=== PATIENT | male | born 1935 | race African-American/Black ===

== ENCOUNTER 2021-02-10 18:55 | Inpatient (IN) ==
[2021-02-10 21:11] LABS: Basophils % 0.4 % (0.0-0.8); Eosinophils # 0.1 10*3/uL (0.0-0.87); Eosinophils % 0.6 % (0.00-10.9); Hematocrit 44.1 VOL% (42.0-52.0); Hemoglobin 14.7 GM/DL (14.0-18.0); Immature Granulocytes % 0.4 %; Immature Granulocytes Absolute 0.04 #; Lymphocytes # 1.6 10*3/uL (1.4-4.0); Lymphocytes % 15.4 % (21.2-54.2); Mean Corpuscular HGB Conc 33.3 GM/DL (32-36); Mean Corpuscular Volume 92.5 FL (87-102); Mean Platelet Volume 10.2 FL (9.6-12.0); Monocytes % 6.4 % (1.7-12.7); Neutrophils % 76.8 % (38.7-73.9); Platelet Count 198 T/CUMM (130-400); Red Blood Count 4.77 MC/CUMM (3.8-5.5); Red Cell Distribution Width 12.9 % (9.3-17.3); White Blood Count 10.2 T/CUMM (4-12)
[2021-02-10 21:26] LABS: Albumin 3.7 G/DL (3.4-5.0); Bilirubin,Total 2.6 MG/DL (0.2-1.0); Calcium 9.7 MG/DL (8.5-10.1); Osmolality,Calculated 286.1 MOS/KG (273-304); Potassium 3.2 MMOL/L (3.5-5.1); Total Protein 7.6 G/DL (6.4-8.2)
[2021-02-10 21:31] LABS: Bilirubin,Urine Negative (Negative); Blood, Urine Small mg/dL (Negative); Glucose,Urine (UA) Negative (Negative); Ketones,Urine Negative (Negative); Mucus,Urine Many /LPF (Occasional); Nitrite,Urine Negative (Negative); Protein,Urine 30 MG/DL; RBC,Urine 7 /HPF (0-4); Urine Appearance CLEAR (Clear); Urine Color Yellow (Yellow); Urine Specific Gravity 1.023 (1.001-1.035); WBC,Urine 1 /HPF (0-6)
[2021-02-10] MEDS ORDERED: GLUCAGON 1 MG VIAL IM PRN (23:26)
[2021-02-10] MEDS ORDERED: ONDANSETRON 4 MG/2 ML VIAL IV PRN (23:26)
[2021-02-11] MEDS: SODIUM CHLOR 0.45% KCL 20 MEQ 20 MEQ/1,000 ML BAG IV SCH ×3 (00:27→21:30)
[2021-02-11] MEDS: ENOXAPARIN 40 MG/0.4 ML SYRINGE SUBCUT SCH ×2 (00:28→23:10)
[2021-02-11 06:45] LABS: Albumin 3.3 G/DL (3.4-5.0); Bilirubin,Total 3.1 MG/DL (0.2-1.0); Calcium 9.3 MG/DL (8.5-10.1); Osmolality,Calculated 284.1 MOS/KG (273-304); Potassium 3.4 MMOL/L (3.5-5.1)
[2021-02-11] MEDS: INSULIN REGULAR 100 UNIT/ML SUBCUT SCH ×4 (07:34→21:33)
[2021-02-11] MEDS ORDERED: DOCUSATE SODIUM 100 MG CAPSULE PO PRN (08:03)
[2021-02-11] MEDS ORDERED: SODIUM PHOSPHATE ENEMA 133 ML BOTTLE RECTAL PRN (08:03)
[2021-02-11] MEDS ORDERED: LACTULOSE 20 GM/30 ML UDCUP PO ONE (08:03)
[2021-02-11] MEDS ORDERED: SODIUM PHOSPHATE ENEMA 133 ML BOTTLE RECTAL ONE (08:06)
[2021-02-11] MEDS: POTASSIUM CHLORIDE RIDER 10 MEQ in PREMIX 1 EACH IV PRN ×2 (22:01→23:07)
[2021-02-11] MEDS: TAMSULOSIN 0.4 MG CAPSULE PO SCH (22:25)
[2021-02-12] MEDS: POTASSIUM CHLORIDE RIDER 10 MEQ in PREMIX 1 EACH IV PRN (00:07)
[2021-02-12 06:11] LABS: Basophils % 0.5 % (0.0-0.8); Eosinophils # 0.1 10*3/uL (0.0-0.87); Eosinophils % 1.5 % (0.00-10.9); Hemoglobin 12.9 GM/DL (14.0-18.0); Immature Granulocytes % 0.2 %; Immature Granulocytes Absolute 0.01 #; Lymphocytes # 1.1 10*3/uL (1.4-4.0); Lymphocytes % 17.9 % (21.2-54.2); Mean Corpuscular HGB Conc 33.1 GM/DL (32-36); Mean Corpuscular Volume 93.1 FL (87-102); Mean Platelet Volume 10.7 FL (9.6-12.0); Monocytes % 8.5 % (1.7-12.7); Neutrophils % 71.4 % (38.7-73.9); Platelet Count 193 T/CUMM (130-400); Red Blood Count 4.19 MC/CUMM (3.8-5.5); Red Cell Distribution Width 12.8 % (9.3-17.3); White Blood Count 6.2 T/CUMM (4-12)
[2021-02-12 06:45] LABS: Calcium 8.9 MG/DL (8.5-10.1); Osmolality,Calculated 281.3 MOS/KG (273-304); Potassium 3.8 MMOL/L (3.5-5.1)
[2021-02-12] MEDS: INSULIN REGULAR 100 UNIT/ML SUBCUT SCH ×4 (07:49→20:40)
[2021-02-12] MEDS: SODIUM CHLOR 0.45% KCL 20 MEQ 20 MEQ/1,000 ML BAG IV SCH ×2 (11:03→21:40)
[2021-02-12] MEDS: DEXTROSE 50% 25 GM/50 ML VIAL IV PRN (17:16)
[2021-02-12] MEDS: TAMSULOSIN 0.4 MG CAPSULE PO SCH (20:40)
[2021-02-12] MEDS: ENOXAPARIN 40 MG/0.4 ML SYRINGE SUBCUT SCH (23:30)
[2021-02-13 06:32] LABS: Basophils % 0.6 % (0.0-0.8); Eosinophils # 0.2 10*3/uL (0.0-0.87); Eosinophils % 3.2 % (0.00-10.9); Hematocrit 39.1 VOL% (42.0-52.0); Hemoglobin 13.1 GM/DL (14.0-18.0); Immature Granulocytes % 0.2 %; Immature Granulocytes Absolute 0.01 #; Lymphocytes # 1.2 10*3/uL (1.4-4.0); Lymphocytes % 23.4 % (21.2-54.2); Mean Corpuscular HGB Conc 33.5 GM/DL (32-36); Mean Corpuscular Volume 92.7 FL (87-102); Mean Platelet Volume 10.3 FL (9.6-12.0); Neutrophils % 61.6 % (38.7-73.9); Platelet Count 184 T/CUMM (130-400); Red Blood Count 4.22 MC/CUMM (3.8-5.5); Red Cell Distribution Width 12.6 % (9.3-17.3); White Blood Count 5.3 T/CUMM (4-12)
[2021-02-13 06:56] LABS: Osmolality,Calculated 272.8 MOS/KG (273-304); Potassium 4.1 MMOL/L (3.5-5.1)
[2021-02-13] MEDS ORDERED: MAGNESIUM SULF RIDER 4 GM in PREMIX 1 EACH IV PRN (07:32)
[2021-02-13] MEDS: INSULIN REGULAR 100 UNIT/ML SUBCUT SCH ×4 (07:39→23:16)
[2021-02-13] MEDS: SODIUM CHLOR 0.45% KCL 20 MEQ 20 MEQ/1,000 ML BAG IV SCH (17:30)
[2021-02-13] MEDS: DEXTROSE 50% 25 GM/50 ML VIAL IV PRN (17:31)
[2021-02-13] MEDS: TAMSULOSIN 0.4 MG CAPSULE PO SCH (20:59)
[2021-02-14] MEDS: ENOXAPARIN 40 MG/0.4 ML SYRINGE SUBCUT SCH (00:39)
[2021-02-14] MEDS: SODIUM CHLOR 0.45% KCL 20 MEQ 20 MEQ/1,000 ML BAG IV SCH ×2 (04:49→22:00)
[2021-02-14 06:42] LABS: Basophils % 0.7 % (0.0-0.8); Eosinophils # 0.2 10*3/uL (0.0-0.87); Eosinophils % 5.5 % (0.00-10.9); Hematocrit 39.8 VOL% (42.0-52.0); Hemoglobin 13.6 GM/DL (14.0-18.0); Immature Granulocytes % 0.2 %; Immature Granulocytes Absolute 0.01 #; Lymphocytes # 0.9 10*3/uL (1.4-4.0); Lymphocytes % 21.7 % (21.2-54.2); Mean Corpuscular HGB Conc 34.2 GM/DL (32-36); Mean Corpuscular Volume 91.1 FL (87-102); Mean Platelet Volume 10.1 FL (9.6-12.0); Monocytes % 12.5 % (1.7-12.7); Neutrophils % 59.4 % (38.7-73.9); Platelet Count 201 T/CUMM (130-400); Red Blood Count 4.37 MC/CUMM (3.8-5.5); Red Cell Distribution Width 12.4 % (9.3-17.3); White Blood Count 4.3 T/CUMM (4-12)
[2021-02-14 07:12] LABS: Osmolality,Calculated 273.7 MOS/KG (273-304); Potassium 4.2 MMOL/L (3.5-5.1)
[2021-02-14] MEDS: DEXTROSE 50% 25 GM/50 ML VIAL IV PRN (07:28)
[2021-02-14] MEDS: INSULIN REGULAR 100 UNIT/ML SUBCUT SCH ×4 (07:30→20:02)
[2021-02-14] MEDS: MAGNESIUM SULF RIDER 2 GM in PREMIX 1 EACH IV PRN (09:39)
[2021-02-14] MEDS: TAMSULOSIN 0.4 MG CAPSULE PO SCH (20:01)
[2021-02-15] MEDS: SODIUM CHLOR 0.45% KCL 20 MEQ 20 MEQ/1,000 ML BAG IV SCH ×3 (03:20→18:53)
[2021-02-15 05:22] LABS: Basophils % 0.6 % (0.0-0.8); Eosinophils # 0.2 10*3/uL (0.0-0.87); Eosinophils % 3.8 % (0.00-10.9); Hematocrit 38.8 VOL% (42.0-52.0); Hemoglobin 13.1 GM/DL (14.0-18.0); Immature Granulocytes % 0.4 %; Immature Granulocytes Absolute 0.02 #; Lymphocytes # 1.2 10*3/uL (1.4-4.0); Mean Corpuscular HGB Conc 33.8 GM/DL (32-36); Mean Corpuscular Volume 92.2 FL (87-102); Monocytes % 11.4 % (1.7-12.7); Neutrophils % 60.8 % (38.7-73.9); Platelet Count 193 T/CUMM (130-400); Red Blood Count 4.21 MC/CUMM (3.8-5.5); Red Cell Distribution Width 12.5 % (9.3-17.3); White Blood Count 5.3 T/CUMM (4-12)
[2021-02-15 05:36] LABS: Calcium 8.9 MG/DL (8.5-10.1); Osmolality,Calculated 273.7 MOS/KG (273-304); Osmolality,Calculated 276.5 MOS/KG (273-304); Potassium 4.1 MMOL/L (3.5-5.1)
[2021-02-15 05:50] LABS: INR 1.1
[2021-02-15] MEDS: DEXTROSE 50% 25 GM/50 ML VIAL IV PRN (07:43)
[2021-02-15] MEDS ORDERED: ceFAZolin 1,000 MG in SYRINGE 1 EACH IV ONE (08:00)
[2021-02-15] MEDS: INSULIN REGULAR 100 UNIT/ML SUBCUT SCH ×4 (08:11→21:54)
[2021-02-15] MEDS: LACTATED RINGERS 1,000 ML IV SCH (12:38)
[2021-02-15] MEDS ORDERED: propofoL 200 MG/20 ML VIAL IV ONE (13:54)
[2021-02-15] MEDS ORDERED: LIDOCAINE 2% 5 ML VIAL ONE (13:54)
[2021-02-15] MEDS: TAMSULOSIN 0.4 MG CAPSULE PO SCH (21:48)
[2021-02-15] MEDS: GABAPENTIN 300 MG CAPSULE PO SCH (21:48)
[2021-02-16] MEDS: SODIUM CHLOR 0.45% KCL 20 MEQ 20 MEQ/1,000 ML BAG IV SCH (05:22)
[2021-02-16 06:49] LABS: Basophils % 0.3 % (0.0-0.8); Eosinophils # 0.1 10*3/uL (0.0-0.87); Eosinophils % 0.8 % (0.00-10.9); Immature Granulocytes % 0.3 %; Immature Granulocytes Absolute 0.02 #; Lymphocytes # 0.8 10*3/uL (1.4-4.0); Lymphocytes % 10.6 % (21.2-54.2); Mean Corpuscular HGB Conc 33.3 GM/DL (32-36); Mean Corpuscular Volume 91.9 FL (87-102); Mean Platelet Volume 10.4 FL (9.6-12.0); Monocytes % 7.5 % (1.7-12.7); Neutrophils % 80.5 % (38.7-73.9); Platelet Count 225 T/CUMM (130-400); Red Blood Count 4.57 MC/CUMM (3.8-5.5); Red Cell Distribution Width 12.7 % (9.3-17.3); White Blood Count 7.5 T/CUMM (4-12)
[2021-02-16 07:11] LABS: Calcium 8.9 MG/DL (8.5-10.1); Osmolality,Calculated 271.8 MOS/KG (273-304); Potassium 4.2 MMOL/L (3.5-5.1)
[2021-02-16] MEDS: LACTATED RINGERS 1,000 ML IV SCH (08:08)
[2021-02-16] MEDS: INSULIN REGULAR 100 UNIT/ML SUBCUT SCH ×4 (08:08→21:17)
[2021-02-16] MEDS ORDERED: [UNRECOGNIZED DRUG - MIXTURE] PO SCH (09:00)
[2021-02-16] MEDS: predniSONE 5 MG TABLET PO SCH (09:37)
[2021-02-16] MEDS: LOSARTAN/HCTZ 50-12.5 MG TABLET PO SCH (09:37)
[2021-02-16] MEDS: GABAPENTIN 300 MG CAPSULE PO SCH ×2 (09:37→21:18)
[2021-02-16] MEDS: FOLIC ACID 1 MG TABLET PO SCH (09:37)
[2021-02-17 05:56] LABS: Basophils % 0.5 % (0.0-0.8); Eosinophils # 0.1 10*3/uL (0.0-0.87); Eosinophils % 1.7 % (0.00-10.9); Hematocrit 38.9 VOL% (42.0-52.0); Hemoglobin 13.3 GM/DL (14.0-18.0); Immature Granulocytes % 0.3 %; Immature Granulocytes Absolute 0.02 #; Lymphocytes % 16.4 % (21.2-54.2); Mean Corpuscular HGB Conc 34.2 GM/DL (32-36); Mean Platelet Volume 10.6 FL (9.6-12.0); Monocytes % 8.4 % (1.7-12.7); Neutrophils % 72.7 % (38.7-73.9); Platelet Count 241 T/CUMM (130-400); Red Blood Count 4.32 MC/CUMM (3.8-5.5); Red Cell Distribution Width 12.5 % (9.3-17.3); White Blood Count 6.3 T/CUMM (4-12)
[2021-02-17 06:24] LABS: Calcium 9.1 MG/DL (8.5-10.1); Osmolality,Calculated 275.7 MOS/KG (273-304); Potassium 3.6 MMOL/L (3.5-5.1)
[2021-02-17] MEDS: MAGNESIUM SULF RIDER 2 GM in PREMIX 1 EACH IV PRN (10:05)
[2021-02-17] MEDS: FOLIC ACID 1 MG TABLET PO SCH (10:15)
[2021-02-17] MEDS: predniSONE 5 MG TABLET PO SCH (10:15)
[2021-02-17] MEDS: LOSARTAN/HCTZ 50-12.5 MG TABLET PO SCH (10:15)
[2021-02-17] MEDS: GABAPENTIN 300 MG CAPSULE PO SCH (10:16)
[2021-02-17] MEDS: INSULIN REGULAR 100 UNIT/ML SUBCUT SCH ×3 (11:07→15:31)
[2021-02-17] MEDS: LACTATED RINGERS 1,000 ML IV SCH (11:07)
[2021-02-17 15:31] VITALS: BP 122/82
[2021-02-17] MEDS ORDERED: ALFUZOSIN 10 MG TABLET PO SCH (21:00)
== END 2021-02-17 15:40 | disposition home health service (06) | DRG 392 ==
LOC: N.EDINP 18:55 → N.ED 18:55 → N.3E 02-11 00:21
PROVIDERS: ADMIT Internal Medicine; ATTEND Internal Medicine
PROC: EGDWPEG (ICD-10-PCS; 2021-02-15 12:05)